=== PATIENT | male | born 1955 | race Caucasian/White ===

== ENCOUNTER → 2019-01-23 | Outpatient (CLI) | payer OTHER ==
[~2019-01-23] MED LIST: B12,B-12,B 12500 MC1 PO; BISACODYL LAXATI5 MG PO; CELEXA40 MG PO; CITALOPRAM20 MG PO; GOOD SENSE400 MG/5 M PO; LACTINEX 0.2 MG1 TAB PO; LOPRESSOR50 MG; METOPROLOL TART50 M1 PO; NEURONTIN600 MG PO; NYSTOP60 GM T; TYLENOL325 M2 PO; Vitamin D PO; XANAX0.25 MG PO
== END | disposition home or self-care (01) ==
LOC: ORTHO 01:23
DX: S42.251D Displaced fracture of greater tuberosity of right humerus, subsequent encounter for fracture with routine healing (principal); X58.XXXD Exposure to other specified factors, subsequent encounter